=== PATIENT | female | born 1950 | race Caucasian/White ===

== ENCOUNTER 2025-05-29 10:43 | Outpatient (AMB) | payer MEDICARE, BC, SELFPAY ==
--- NOTE | 2025-05-29 10:47 | MHC.PC.OV ---
Vital Signs 05/29/25 10:50 Height 5 ft 1 in Weight 193 lb 4 oz BMI 36.5 BP 148/82 H Blood Pressure Location Lt brachial Position Sitting Respiration 18 Pulse 64 Pulse Source Pulse Oximeter Temp Source Temporal Artery Scan Pulse Oximetry (%) 98 Oxygen Delivery Method Room Air Intake Visit Reasons: establish care Inspector Toys Required: No Accompanied by: Self / Same As Patient Allergies codeine Allergy (Severe, Verified 05/29/25 11:14) Vomiting Medication List - Last Reconciled 05/29/25 by BRIEN Woods losartan-hydrochlorothiazide 50-12.5 mg 1 tab PO DAILY Tobacco use date assessed: 05/29/25 Fall risk assessment: No Falls in past year Last assessed Fall Risk: 05/29/25 Dental Screening Dental Screen Date: 05/29/25 Did you have a dental visit in the last 12 months?: Yes Did you have a dental problem in the last 6 months where you did not have access to dental care?: No Was dental information given to patient?: Patient has dentist HPI establish care HPI Details Previous PCP: no pcp in a long time Last visit: Last PE: Did not have one for along time Specialist: no OBGYN: no Past medical history: htn, Needs Colonoscopy: she has to be able to take the pills; she cannot drink the liquid Medications: surgical: hysterectomy 2020, precancerous [place] [facility] [place] Family HX:colon cancer at age in his 70s live up to 90s. Mother was legally blind, best disease, macular degenerative. htn maternal, all of her kids have htn as well. Problem: The patient is a 74-year-old female presenting to establish care after not having a primary care physician for many years. She was previously briefly seen at a weight management clinic where she was started on medication for high blood pressure. She has a family history of hypertension on her mother's side, which also affects her children. The patient is concerned about skinny bowel movements and has a family history of colon cancer, as her father was diagnosed in his 70s. Her father had polyps removed and underwent a short course of treatment, living to age 95. The patient had a colonoscopy approximately 20 years ago which was normal. She is unable to tolerate liquid colonoscopy preparations and requires a pill-based prep. Her past surgical history is significant for a hysterectomy in 2000 due to precancerous cells. She has a known allergy to codeine, which causes her to feel sick. Following the deaths of her and father, she experienced significant stress and gained approximately 50 pounds, but has recently lost some weight and reports improvement in exertional shortness of breath. Patient reports mixed incontinence, she explained stress incontinence when she sneezes and urge incontinence that she feels like she starts urinating as soon as she sees the bathroom. She is current wearing pads to assist with this. REPLACED BY [facility] Medical History (Updated 05/29/25 @ 23:12 by BRIEN Woods) Mixed incontinence urge and stress HTN (hypertension) Surgical History (Updated 05/29/25 @ 12:58 by BRIEN Woods) History of hysterectomy for cancer Family History (Updated 05/29/25 @ 23:06 by BRIEN Woods) Mother Legally blind HTN (hypertension) Macular degeneration Father Colon cancer Daughter HTN (hypertension) Son HTN (hypertension) Social History Alcohol intake: never Patient Tobacco Use Status: Never used Tobacco e-Cigarette/Vaping Use: Never Used Current occupational status: retired Cognitive needs: No Hearing needs: No Vision needs: No Questionnaire Thrive Questionnaire Date Thrive assessed: 05/29/25 I am a: Patient What is your living situation today?: I have a steady place to live Within the past 12 months, did the food you bought not last and you didn't have the money to get more?: Never true Within the past 12 months, did you worry whether your food would run out before you got money to buy more?: Never true Do you have trouble paying for medicines?: No Do you have trouble getting transportation to medical appointments?: No Do you have trouble paying your heating and electricity bill?: No Do you have trouble taking care of your child, family member or friend?: No Do you have trouble with day-to-day activities such as bathing, preparing meals, shopping, managing finances, etc.?: No Are you currently unemployed and looking for a job?: No Are you interested in more education?: No Please select the resources that you would like help with: None Currently or been in a relationship where the following occur: No concerns reported THRIVE Score: 0 AUDIT C Alcohol Use Questionnaire (AUDIT-C) 1. How often do you have a drink containing alcohol?: Never 3. How often do you have six or more drinks on one occasion?: Never Total Score: 0 WILFRED-7 AMB Questionnaire WILFRED-7 Date WILFRED - 7 assessed: 05/29/25 Feeling nervous, anxious, or on edge: 0 = Not at all Not being able to stop or control worryin = Not at all Worrying too much about different things: 0 = Not at all Trouble relaxin = Not at all Being so restless that it is hard to sit still: 0 = Not at all Becoming easily annoyed or irritable: 0 = Not at all Feeling afraid as if something awful might happen: 0 = Not at all Total WILFRED-7 score (0-4 normal; 5-9 mild; 10-14 moderate; 15-21 severe): 0 Source: Developed by Drs. Dmitriy Valladares, Pricilla Blue, Fito Dailey and colleagues, with an educational amilcar from [employer]. Review of Systems Const Denies headache(s) Eyes Denies loss of vision ENT Denies vertigo, Denies dizziness, Denies headache(s) and Denies sore throat Card Denies chest pain, Denies leg edema and Denies lightheadedness Resp Denies cough, Denies hemoptysis and Denies wheezing GI Denies abdominal pain, Denies melena, Denies constipation, Denies diarrhea and Denies vomiting Denies urinary frequency, Denies dysuria, Reports urinary incontinence (stress and urge incontinence) and Denies urinary urgency Musc Denies arthralgias, Denies joint swelling, Denies numbness and Denies tingling Neuro Denies Abnormal speech present, Denies behavioral changes, Denies vertigo, Denies dizziness, Denies headache(s), Denies loss of vision, Denies memory loss, Denies numbness and Denies tingling Psych Denies anxiety, Denies behavioral changes, Denies depression, Denies memory loss and Denies panic attacks Johnathan/Lymph Denies easy bleeding and Denies easy bruising Aller/Immun Denies wheezing Physical exam (Primary Care) Vital Signs: Last Vital Signs Pulse 64 05/29/25 10:50 Resp 18 05/29/25 10:50 BP 148/82 H 05/29/25 10:50 Pulse Ox 98 05/29/25 10:50 Oxygen Delivery Method Room Air 05/29/25 10:50 BMI result Body Mass Index 36.5 Tobacco/Smoking Status: Tobacco use Status Tobacco use date assessed 05/29/25 05/29/25 10:58 Patient Tobacco Use Status Never used Tobacco 05/29/25 10:58 e-Cigarette/Vaping Use Never Used 05/29/25 10:58 Thrive Assessment: Date of Thrive Assessment Date Thrive assessed 05/29/25 05/29/25 10:58 Currently or been in a relationship where the following occur: No concerns reported Const General: healthy appearing, no acute distress, alert and awake Nutritional Appearance: well nourished Orientation/consciousness: oriented to person, oriented to place and oriented to time HENMT Ears: TM normal on the left and Abnormal EAC present cerumen impaction on the right General nose exam: Normal nasal mucous membranes and turbinates present Eyes Conjunctivae: conjunctivae normal Sclerae: sclerae normal Pupils: Equal, round and reactive pupils present Neck Neck: Yes no lymphadenopathy and Yes no JVD Thyroid: Thyroid normal Carotids: no bruits Resp Effort & Inspection: normal respiratory effort and not tachypneic Auscultation: no crackles, no rales, no rhonchi and no wheezes Cardio Rate: regular rate Rhythm: regular rhythm Heart sounds: no murmurs and normal S1 and S2 GI Palpation (GI): Soft to palpation, nontender, no hepatomegaly and no splenomegaly Auscultation: normal bowel sounds Skin General skin exam: no rashes or lesions noted and dry skin Neuro General: oriented to person, oriented to place and oriented to time Cranial nerves: Yes Equal, round and reactive pupils present Speech: No Abnormal speech present Gait exam (Neuro): Normal gait present Motor exam (neuro): no tremor noted Extrem Right upper extremity: full ROM Left upper extremity: full ROM Right lower extremity: full ROM; no edema Left lower extremity: full ROM; no edema Psych Mental Status: mental status grossly normal Speech and movement: Normal speech and movement present Affect: normal affect Attitude: cooperative Thought process: Normal thought process present Office Procedures EKG [id number], Complete Coding Level of Care Code New Pt Level 4 (17255) Diagnoses Hypertension, unspecified type I10 Hypertension type: unspecified Mixed incontinence urge and stress N39.46 Right ear impacted cerumen H61.21 Screening for colorectal cancer Z12.11; Z12.12 Encounter for screening mammogram for malignant neoplasm of breast Z12.31 Breast cancer screening modality: mammogram CPT Codes EKG - CPT: 44344-[id number], Complete ([id number]) Time Spent (min) 38 Assessment & Plan Assessment & Plan (1) HTN (hypertension): Code(s): I10 - Essential (primary) hypertension Category: Medical Qualifiers: Hypertension type: unspecified Qualified Code(s): I10 - Essential (primary) hypertension Plan: The patient's blood pressure was elevated in the office at 148/82 mm Hg, but she reports it was normal at a recent check. The elevation is suspected to be related to anxiety of meeting new provider for the first time. No changes will be made to her current blood pressure medication today. A baseline EKG was ordered and will be performed in the office. A prescription for her current medication will be sent to her pharmacy. (2) Mixed incontinence urge and stress: Code(s): N39.46 - Mixed incontinence Category: Medical Plan: The patient reports symptoms consistent with both stress and urge urinary incontinence, including leakage with coughing and sudden urges. A referral to Urology will be placed for further evaluation and discussion of management options. (3) Right ear impacted cerumen: Code(s): H61.21 - Impacted cerumen, right ear Category: Medical Plan: Physical exam revealed hard, impacted cerumen. It was recommended that the patient use Debrox ear drops twice daily for four consecutive days to soften the wax. Following the use of the drops, she should schedule a dedicated appointment for in-office ear cleaning. A prescription for Debrox will be sent to her pharmacy. (4) Screening for colorectal cancer: Code(s): Z12.11 - Encounter for screening for malignant neoplasm of colon; Z12.12 - Encounter for screening for malignant neoplasm of rectum Category: Medical Plan: The patient is overdue for colon cancer screening and reports a change in stool caliber, along with a family history of colon cancer. A referral will be placed to Gastroenterology for a colonoscopy. Care will be taken to find a provider who offers the pill-based preparation, as the patient cannot tolerate the standard liquid prep. The patient reports that she had this done at [facility] before. Will send GI referral there per request. (5) Breast cancer screening: Code(s): Z12.39 - Encounter for other screening for malignant neoplasm of breast Category: Medical Qualifiers: Breast cancer screening modality: mammogram Qualified Code(s): Z12.31 - Encounter for screening mammogram for malignant neoplasm of breast Plan: Patient is due for Mammogram. Order placed. Orders: Orders Complete Blood Count Auto Diff Today Z00.00 - Encounter for general adult medical examination without abnormal findings Lipid Panel Today Z00.00 - Encounter for general adult medical examination without abnormal findings TSH reflex Free T4 Today Z00.00 - Encounter for general adult medical examination without abnormal findings UA CC w/rflx Micro + Cult Today Z00.00 - Encounter for general adult medical examination without abnormal findings ECG 12 lead EKG Today Z00.00 - Encounter for general adult medical examination without abnormal findings Comprehensive [place]. Panel Fast Today Z00.00 - Encounter for general adult medical examination without abnormal findings Vitamin D 25-OH Total Today Z00.00 - Encounter for general adult medical examination without abnormal findings AMB EKG-In Office Today Z13.6 - Encounter for screening for cardiovascular disorders MM tomosynthesis screening BI Today Z12.31 - Encounter for screening mammogram for malignant neoplasm of breast Referrals Urology Referral N39.46 - Mixed incontinence Gastroenterology Referral Z12.11 - Encounter for screening for malignant neoplasm of colon, Z12.12 - Encounter for screening for malignant neoplasm of rectum Medications: New losartan-hydrochlorothiazide 50-12.5 mg 1 tab PO DAILY 60 tabs 3RF carbamide peroxide 6.5% (Debrox) 5 drps otic (ears) Q12H 15 mL 0RF 4 days
[2025-05-29 10:50] VITALS: BP 148/82; PULSE 64; RESP 18; O2SAT 98; BMI 36.5
--- OUTSIDE RECORDS SUMMARY | 2025-05-29 12:31 | XMS_ITS ---
Author Name [facility] Organization Unknown Care Team Organization Name Specialty Phone Email Start Date End Da te [facility]
== END 2025-05-29 12:14 | disposition home or self-care (01) ==
DX: I10 Essential (primary) hypertension (principal); N39.46 Mixed incontinence; H61.21 Impacted cerumen, right ear; Z12.11 Encounter for screening for malignant neoplasm of colon; Z12.12 Encounter for screening for malignant neoplasm of rectum; Z12.31 Encounter for screening mammogram for malignant neoplasm of breast

== ENCOUNTER 2025-05-29 10:43 | Outpatient (REF) | payer MEDICARE, BC, SELFPAY ==
[2025-05-29 12:35] LABS: MANUAL DIFF FLAG NO
[2025-05-29 12:45] LABS: Hematocrit 44.4 % (37.0-47.0); Hemoglobin 14.1 g/dl (12.0-16.0); Imm Gran Abs Auto 0.02 X10*3/uL (0.00-0.03); Imm Gran Pct Auto 0.3 % (0.0-0.4); Lymphocytes Absolute Auto 1.6 X10*3/uL (1.2-4.9); Mean Corpuscular HGB Conc 31.8 g/dl (31.0-35.0); Mean Corpuscular Hemoglobin 28.1 pg (27.0-33.0); Mean Corpuscular Volume 88.4 fL (80.0-98.0); NRBC Abs Auto 0.000 X10*3/uL (0.0-0.012); NRBC Pct Auto 0.0 /100WBC (0.0-0.2); Platelet Count 178 X10*3/uL (160-400); Red Blood Count 5.02 X10*6/uL (4.20-5.50); White Blood Count 7.1 X10*3/uL (4.8-10.8)
[2025-05-29 13:25] LABS: Alanine Aminotransferase 29 U/L (0-31); Albumin Level 4.3 g/dL (3.5-5.0); Alkaline Phosphatase 138 U/L (39-117); Anion Gap 10 (12-20); Aspartate Amino Transferase 29 U/L (5-31); Blood Urea Nitrogen 21 mg/dL (9-16); Calcium 10.0 mg/dL (8.4-10.2); Carbon Dioxide 27 mmol/L (22-29); Chloride 107 mmol/L (96-108); Cholesterol 208 mg/dL (<200); Estimated Glomerular Filt Rate > 60; HDL Cholesterol 55 mg/dL (>40); Potassium 4.1 mmol/L (3.3-5.1); Sodium 140 mmol/L (135-145); Total Protein 7.0 g/dL (6.5-8.0); Triglycerides 114 mg/dL (<150)
[2025-05-29 13:31] LABS: Appearance Urine Clear; Glucose Urine UA Negative (Negative); PH 7.5 (5.0-9.0); Specific Gravity - Urine 1.020 (1.005-1.025); UMIC TRIGGER UACC YES
[2025-05-29 13:46] LABS: Other Crystals Urine Present; UACC Culture Trigger YES
== END 2025-05-29 10:44 | disposition home or self-care (01) ==
LOC: HO.LAB 10:43
DX: Z00.00 Encounter for general adult medical examination without abnormal findings (principal); N39.46 Mixed incontinence; I10 Essential (primary) hypertension; H61.21 Impacted cerumen, right ear; Z13.6 Encounter for screening for cardiovascular disorders
CPT/HCPCS: 36415; 80053; 80061; 81001; 82306; 84443; 85025; 87086; 93005; 96127; 99202